=== PATIENT | male | born 1965 | race Caucasian/White ===

== ENCOUNTER 2024-04-01 01:32 | Inpatient (IN) | payer OTHER, SELFPAY ==
[2024-03-31 18:36] VITALS: BMI 39.1
[2024-03-31 18:43] VITALS: BP 124/93
[2024-03-31] MEDS: DILAUDID 0.5 MG IV (21:26)
[2024-03-31] MEDS: ZOFRAN 4 MG IV (21:26)
[2024-03-31] MEDS: NSS 1000 IV (21:26)
[2024-03-31 21:29] VITALS: BP 122/86
[2024-03-31 21:37] LABS: % Basophils 0.2 % (0-2); % Eosinophils 0.1 % (0-6); % Immature Granulocytes 0.3 % (0-0.5); % Lymphocytes 3.2 % (20.5-51.1); % Monocytes 3.9 % (1.7-9.3); % Neutrophils 92.3 % (42.2-75.2); Absolute Immature Granulocytes 0.1 10^3/uL (0-0.05); Absolute Lymphocytes 0.6 10^3/uL (1.2-3.4); Absolute Monocytes 0.8 10^3/uL (0.1-0.6); Absolute Neutrophils 18.4 10^3/uL (1.4-6.5); Hemoglobin 18.1 g/dL (13.0-18.0); Mean Corp Hgb Conc. 36.2 g/dL (33.0-37.0); Mean Corpuscular Hgb 30.7 pg (27.0-31.0); Mean Corpuscular Volume 84.7 fL (80.0-94.0); Mean Platelet Volume 8.4 fL (7.4-10.4); Nucleated Red Blood Cells % 0 % (-); Platelet Count 376 10^3/uL (130-400)
[2024-03-31 21:47] LABS: ALT (SGPT) 31 U/L (0-50); AST (SGOT) 31 U/L (17-59); Albumin 5.6 g/dl (3.5-5.0); Alkaline Phosphatase 82 U/L (38-126); Blood Urea Nitrogen 18 mg/dl (9-20); Calcium 11.3 mg/dl (8.4-10.2); Carbon Dioxide 28 mmol/L (22-30); Chloride 97 mmol/L (98-107); Estimated Creatinine Clearance 79 ml/min; Glucose 130 mg/dl (70-99); Lipase 74 U/L (23-300); Potassium 4.7 mmol/L (3.5-5.1); Sodium 139 mmol/L (135-145); Total Protein 8.9 g/dl (6.3-8.2); eGFR > 60.00
[2024-03-31 21:52] LABS: APTT 30.1 Sec (23.4-35.0)
[2024-03-31 22:00] VITALS: BP 111/78
[2024-03-31 22:20] VITALS: BP 111/78
[2024-03-31 23:00] VITALS: BP 105/61
--- NOTE | 2024-03-31 23:16 | ED.GENMED ---
History of Present Illness
General
Chief Complaint: Abdominal Pain
Source: patient and family
Time Seen by Provider: 03/31/24 19:57
Travel History
Have you had any contact with someone who has COVID-19?: No
Do you have any symptoms of coronavirus? Fever > 100 degrees, chills, cough, shortness of breath, sore throat, loss of taste or smell, muscle aches, or headache?: No
History of Present Illness
History of Present Illness:
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
He has had small bowel obstructions in the past due to adhesions. He began with pain this morning and did have some bowel movement but since this morning has not passed any gas from below or had a bowel movement. The patient feels the same he felt
when he had a prior bowel obstruction. No fevers. No melena. No hematochezia. No urinary symptoms
Past History
Past History
ED Past Medical History: Other (Treacher Barriga syndrome, bowel obstruction, tracheoesophageal)
ED Past Surgical History: Other (Tracheal esophageal fistula)
Patient has exhibited threatening behavior?: No
Social History
Tobacco: Non-smoker
Living: with family
Phy Exam
Physical Exam
Physical Exam:
CONSTITUTIONAL Patient alert and oriented to person, place and time. Well-appearing. Vital signs reviewed.
HEAD atraumatic, normocephalic.
EYES eyelids normal to inspection, Pupils equally round and reactive to light, Extraocular muscles intact, Conjunctiva normal, Sclera normal.
NECK normal range of motion, Trachea midline, no jugular venous distention.
RESPIRATORY CHEST No respiratory distress noted, Chest expansion equal, Bilateral breath sounds clear.
CARDIOVASCULAR regular rate and rhythm, Heart sounds normal.
ABDOMEN mild distention, moderate midline tenderness, no bowel sounds heard.
BACK normal inspection, no obvious deformities
UPPER EXTREMITY range of motion normal, Motor strength normal, no cyanosis, no edema.
LOWER EXTREMITY range of motion normal, Motor strength normal, no cyanosis, no edema.
NEURO Speech normal, No focal motor deficits, Leti coma scale 15, Memory normal, Cranial Nerves intact to screening exam.
SKIN skin warm, dry, and normal in color.
Course
Orders/Labs/Results
Orders:
Orders
03/31/24 20:18
Urinalysis Reflex To Culture Urgent
03/31/24 20:19
CT Abd/Pel (IV only)-DH only Urgent
Comment:
Reason For Exam: mid abd pain, intractable vomiting
03/31/24 20:26
0.9% Sodium Chloride 1000 ml [Nss] 1,000 ml IV BOLUS
HYDROmorphone [Dilaudid] 0.5 mg IV NOW STA
Ondansetron Injectable [Zofran] 4 mg IV NOW STA
03/31/24 21:31
Complete Blood Count/With Diff Urgent
Comprehensive Metabolic Panel Urgent
Lipase Urgent
PTT Urgent
Comment: Obtain baseline before beginning heparin infusion if not already collected
Abnormal Lab Results
03/31/24
21:31
WBC 20.0 H 10^3/uL
(4.8-10.8)
Hgb 18.1 H g/dL
(13.0-18.0)
Abs Immat Gran (auto) 0.1 H 10^3/uL
(0-0.05)
Absolute Neuts (auto) 18.4 H 10^3/uL
(1.4-6.5)
Absolute Lymphs (auto) 0.6 L 10^3/uL
(1.2-3.4)
Absolute Monos (auto) 0.8 H 10^3/uL
(0.1-0.6)
Neutrophils % 92.3 H %
(42.2-75.2)
Lymphocytes % 3.2 L %
(20.5-51.1)
Chloride 97 L mmol/L
(98-107)
Glucose 130 H mg/dl
(70-99)
Calcium 11.3 H mg/dl
(8.4-10.2)
Total Protein 8.9 H g/dl
(6.3-8.2)
Albumin 5.6 H g/dl
(3.5-5.0)
03/31/24 21:31
03/31/24 21:31
Vital Signs
Initial and Last Documented VS:
Initial Vital Signs
Temp Pulse Resp BP Pulse Ox
98.9 F 70 20 124/93 97
03/31/24 18:43 03/31/24 18:43 03/31/24 18:43 03/31/24 18:43 03/31/24 18:43
Last Documented Vital Signs
Temp Pulse Resp BP Pulse Ox
98.9 F 71 20 111/78 94
03/31/24 18:43 03/31/24 22:20 03/31/24 22:20 03/31/24 22:20 03/31/24 22:20
MDM/Problems Addressed
MDM/Problems Addressed:
Small bowel obstruction
*Radiology
Radiology exam reviewed: preliminary read by ED provider (Dilated loops noted) and radiology read reviewed
*Pulse Oximetry
Patient hypoxic: no
*Critical Care Note
Total Time (30-74mins, 75-104mins- exclusive of procedures): Not Applicable
Data Reviewed
Review of Other/Old Records Reveals: Other (Prior surgical consultation reviewed from June 2023)
Source: patient and family
Further Testing Considered But Not Given:
Considered NG tube but due to craniofacial abnormalities, NG tube is contraindicated in this patient. This was also read on the prior surgical consultation
Patient Management
Discussion with other providers: Hospitalist and Radiologist
Escalation/DeEscalation of care consider admission/obs:
59-year-old male with small bowel obstruction. Stable. No vomiting at this time. Unable to place NG tube due to history of craniofacial abnormalities. Prior obstructions have been resolved with conservative management
ED Attending Note
-
Portions of this chart may have been created with voice recognition software.� Occasional wrong word or��sound alike� substitutions may have occurred due to the inherent limitations of voice recognition software.
Discharge Plan
Departure
Patient Disposition: Admit
Date of Disposition: 03/31/24
Time of Disposition: 23:16
Admit to: Med/Surg
Presentation/result/management discussed w/ accepting MD/DO: Hospitalist
Discharge Problem:
SBO (small bowel obstruction), Treacher Barriga syndrome
Prescriptions:
No Action
lisinopril 5 MG tablet
5 mg PO DAILY
docosahexaenoic acid-epa 1 CAP capsule
1 cap PO DAILY
therapeutic multivitamin Tablet
1 tab PO DAILY
Referrals:
Wojciech Roman MD [Family Provider] -
Interventions
Interventions:
*Risk Screen - Suicide Last Done: 03/31/24 18:43
*General Assessment Last Done: 03/31/24 18:43
*Neglect/Abuse Screening Last Done: 03/31/24 18:43
ED- Fall Risk Assessment Last Done: 03/31/24 21:58
CE-Oyntoh-Nmdmiiidih Assessment Last Done: 03/31/24 21:58
Discharge Date and Time
Print Language: HUNGARIAN
[2024-04-01] VITALS: BP 109/70
[2024-04-01 00:42] LABS: Urine Albumin Trace (Neg - Trace); Urine Bilirubin 1+ (Negative); Urine Character Clear (Clear); Urine Color Yellow; Urine Glucose Negative (Negative); Urine Ketone Negative (Negative); Urine Leukocyte Negative (Negative); Urine Nitrite Negative (Negative); Urine Occult Blood 2+ (Negative); Urine Specific Gravity 1.015 (<1.030); Urine Urobilinogen Negative (Neg - 1+)
--- NOTE | 2024-04-01 00:54 | HPS.HSE ---
Family Physician
-
Family Physician: Wojciech Roman
Chief Complaint
-
Abd Pain, N/V
History of Present Illness
Patient is a 59y M with PMH significant for Treacher-Barriga syndrome and HTN who presents to ED complaining of abdominal pain and N/V. Patient states that he felt well yesterday. This AM he had breakfast with no issues. Later in the morning
he ate a banana and immediately developed mid-abdominal pain. His pain progressed throughout the day. He developed nausea and had 6-7 episodes of non-bloody / bilious emesis. Patient reports history of similar episodes in the past. He presented
to the ED for further evaluation.
Patient notes that he was last hospitalized for these symptoms in June 2023. He has never required surgery for an episode of SBO - though the option has been discussed.
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
Medical History
Past Medical History
Past Medical History: Reports Other
Additional Past Medical History:
Treacher-Barriga Syndrome
Hypertension
Recurrent SBO
Past Surgical History: Reports Other
Additional Past Surgical History:
Tracheoesophageal Fistula Repair
Facial Reconstructive Surgery
Gastrostomy Tube
Social History
Tobacco: Non-smoker
Alcohol: None
Drug: None
Family History
Family History: Not pertinent
Allergies / Home Medications
Allergies reflects when Allergies were last updated in [facility].
Home Medications with original date entered in [facility]
Allergy/Medication List:
Allergies
Allergy/AdvReac Type Severity Reaction Status Date / Time
environmental Allergy Nasal Uncoded 03/31/24 18:46
Congestion
Home Medications
docosahexaenoic acid (dha)-epa 120 mg-180 mg capsule 1 cap PO DAILY Supplement 09/25/17
lisinopril 5 mg tablet 5 mg PO DAILY Blood Pressure 09/25/17
therapeutic multivitamin 1 tab PO DAILY Supplement 06/21/23
calcium carbonate 500 mg PO DAILY 03/31/24
Review of Systems
-
History Source: Patient
A 12 point ROS was completed and negative except as noted: Yes
Constitutional: Denies Fever or Chills
Respiratory: Denies Cough or Trouble Breathing
Cardiac: Denies Chest Pain or Palpitations
Abdomen/GI: Reports Abdominal Pain, Nausea and Vomiting; Denies Diarrhea or Constipated
: Denies Dysuria, Frequency or Flank Pain
Neurological: Denies Dizzy or Headache
Psych: Denies Depression or Anxiety
Physical Exam
Vital Signs
Vital Signs
Temp Pulse Resp BP Pulse Ox
98.9 F 71 20 109/70 93
03/31/24 18:43 03/31/24 22:20 03/31/24 22:20 04/01/24 00:00 03/31/24 23:30
Physical Exam
General: Other (59y M in no acute distress.)
HEENT: Moist mucous membranes and PERRLA
Respiratory: Clear; No Wheezes, Rales or Rhonchi
Cardiac: S1/S2 and Regular Rhythm; No Murmur
GI: Soft, Normal Bowel Sounds and Other (Abdomen softly distended, mildly tender at umbilicus. Bowel sounds are evident.)
Musculoskeletal: No Clubbing, No Cyanosis and No Edema
Neuro: AO x 3
Laboratory Results
-
03/31/24 21:31
03/31/24 21:31
Laboratory Results
APTT 30.1 Sec (23.4-35.0) 03/31/24 21:31
Total Bilirubin 1.0 mg/dl (0.2-1.3) 03/31/24 21:31
AST 31 U/L (17-59) 03/31/24 21:31
ALT 31 U/L (0-50) 03/31/24 21:31
Alkaline Phosphatase 82 U/L (38-126) 03/31/24 21:31
Lipase 74 U/L (23-300) 03/31/24 21:31
Impression/Plan
-
A/P: Patient is a 59y M with PMH significant for Treacher-Barriga syndrome and recurrent SBO who presents to ED complaining of abdominal pain and N/V.
SBO
- Observe overnight for further evaluation and treatment.
- NPO, IVFs, antiemetics and pain control.
- Surgery evaluation.
- Follow for flatus / BM, improvement in symptoms.
- Patient notes that he is unable to have NG placed.
Benign Hypertension
- Stable. Hold PO medications for now.
- Resume lisinopril once tolerating POs.
DVT Prophylaxis: SCDs
Code Status: Full
[2024-04-01 02:27] LABS: Urine Amorphous Seen
[2024-04-01 02:28] LABS: Urine Bacteria Few (Negative); Urine White Cell 0-2 /HPF (0-5)
[2024-04-01 03:13] VITALS: BMI 39.3
[2024-04-01 03:14] VITALS: BP 137/82
[2024-04-01] MEDS: NSS 1000 IV ×3 (03:26→23:08)
[2024-04-01 07:00] VITALS: BP 114/69
[2024-04-01 08:04] LABS: Hematocrit 43.5 % (39.0-52.0); Mean Corp Hgb Conc. 34.5 g/dL (33.0-37.0); Mean Corpuscular Volume 89.9 fL (80.0-94.0); Platelet Count 285 10^3/uL (130-400); Red Blood Cell Count 4.84 10^6/uL (4.70-6.10); Red Cell Dist. Width 13.2 % (11.5-14.5); White Blood Cell Count 12.7 10^3/uL (4.8-10.8)
[2024-04-01 08:35] LABS: Blood Urea Nitrogen 16 mg/dl (9-20); Calcium 9.5 mg/dl (8.4-10.2); Carbon Dioxide 21 mmol/L (22-30); Chloride 106 mmol/L (98-107); Estimated Creatinine Clearance 90 ml/min; Glucose 92 mg/dl (70-99); Potassium 4.3 mmol/L (3.5-5.1); Sodium 140 mmol/L (135-145); eGFR > 60.00
[2024-04-01 08:55] LABS: TSH Reflex To Free T4 2.63 uIU/ml (0.47-4.68)
--- NOTE | 2024-04-01 09:13 | W.PN.HOSP.TC ---
Today's Communication/Plan
-
Continue supportive care
Surgery consult
Assessment / Plan
Assessment / Plan
Gen-AAOx3, NAD
HEENT-NC, AT, anicteric, clear oral mm
Neck-supple
CV-reg, no M, +S1/S2
Lungs-clear B/L
Abd-soft, NT, ND
Ext-no edema
Musculoskeletal-no cyanosis, clubbing
Skin-warm and dry
Neuro-grossly non-focal
Psych-calm, cooperative
Recurrent small bowel obstruction -suspect triggered by dietary indiscretion. Apparently went out to celebrate his birthday recently and ate popcorn and had a large meal. Subsequently had onset of symptoms.
Currently NPO. Continue IV fluids. Await surgery input. Passing gas. No bowel movement since yesterday.
Likely also has adhesions from prior procedures as a child including a G-tube as an infant.
Treacher-Barriga syndrome
Essential hypertension -stable.
Obesity due to excess calories
Full code
Anticipated Discharge: Within 24 hours
Subjective/Interval History
-
Date of Service: April 01, 2024
Patient seen and examined. Feeling better. No complaints.
Objective Data
-
Labs:
Laboratory Results
03/31/24 04/01/24
21:31 07:18
WBC 20.0 H 12.7 H
Hgb 18.1 H 15.0
Hct 50.0 43.5
Plt Count 376 285 D
APTT 30.1
Sodium 139 140
Potassium 4.7 4.3
Chloride 97 L 106
Carbon Dioxide 28 21 L
BUN 18 16
Creatinine 0.8 0.7
Glucose 130 H 92
Calcium 11.3 H 9.5 D
Total Bilirubin 1.0
AST 31
ALT 31
Alkaline Phosphatase 82
Vital Signs:
Vital Signs
Temp Pulse Resp BP Pulse Ox
99.3 F 83 18 114/69 96
04/01/24 07:00 04/01/24 07:00 04/01/24 07:00 04/01/24 07:00 04/01/24 07:00
Review of Systems
-
History Source: Patient
All other systems: Reviewed and negative
[2024-04-01] MEDS: PROTONIX IV 40 MG IV (09:35)
[2024-04-01] MEDS: NSS (PRESERVATIVE FREE) 10 ML IV (09:35)
--- NOTE | 2024-04-01 11:28 | CM ---
financial center manager reviewed patient's chart and met with patient and patient lives with his mother in a 2 story home, patient is independent with adl's and ambulation, no dme, patient drives, patient has a prescription plan and uses [facility].
PCP: Dr. Roman
Plan; Home when stable, no needs.
--- NOTE | 2024-04-01 11:55 | CON.GS ---
Consultation
-
Performing Provider: susie
Reason for Consultation: Small bowel obstruction
Medical History
-
Chief Complaint: Abdominal pain, nausea vomiting
History of Present Illness:
Patient is a 59-year-old male known to our surgical service after previous hospitalizations for small bowel obstructions.
Last hospitalization 06/2023 for SBO which resolved with conservative management. He had another episode a year prior to this and then it had been 10 years since his previous one. Surgical history notable for Treacher-Barriga syndrome, history of
tracheoesophageal fistula child having undergone subsequent correction and gastrostomy tube placement. He has also had multiple craniofacial surgeries.
Patient states that he has been feeling well since hospitalization in June without recurrent obstructive symptoms. He had a large meal to celebrate his birthday the other day and since began to take note of abdominal distention and discomfort.
It increased in severity yesterday with nausea vomiting prompting emergency department evaluation.
This a.m. he is feeling better. Currently denies nausea. Denies abdominal pain. He has not had a bowel movement since his symptoms started.
Past Medical History
Past Medical History: Other (Treacher-Barriga syndrome, hypertension, recurrent SBO)
Past Surgical History: Other (History of T-E fistula repair as a child, gastrostomy tube was trialed, facial reconstructive surgery)
Social History
Tobacco: Non-Smoker
Alcohol: None
Living: With Family
Family History
Family History: Reviewed & Not Pertinent
Allergies / Home Medications
Allergy/AdvReac Type Severity Reaction Status Date / Time
environmental Allergy Nasal Uncoded 03/31/24 18:46
Congestion
�Medication �Instructions �Recorded �Confirmed �Type
docosahexaenoic acid (dha)-epa 120 1 cap PO DAILY Supplement 09/25/17 03/31/24 History
mg-180 mg capsule
lisinopril 5 mg tablet 5 mg PO DAILY Blood Pressure 09/25/17 03/31/24 History
therapeutic multivitamin 1 tab PO DAILY Supplement 06/21/23 03/31/24 History
calcium carbonate 500 mg PO DAILY supplement 03/31/24 03/31/24 History
Review of Systems
-
History Source: Patient
All other systems: Negative unless noted
A 10 point review of systems was completed, and was negative except as per HPI.
Physical Exam
Vital Signs
Temp Pulse Resp BP Pulse Ox
99.3 F 83 18 114/69 96
04/01/24 07:00 04/01/24 07:00 04/01/24 07:00 04/01/24 07:00 04/01/24 07:00
03/31/24 04/01/24 04/02/24
06:59 06:59 06:59
Actual Weight 79.379 kg
Body Mass Index (BMI) 39.3
Lab Results
04/01/24 07:18
04/01/24 07:18
WBC 12.7 10^3/uL (4.8-10.8) H 04/01/24 07:18
Hgb 15.0 g/dL (13.0-18.0) 04/01/24 07:18
Hct 43.5 % (39.0-52.0) 04/01/24 07:18
Plt Count 285 10^3/uL (130-400) D 04/01/24 07:18
Abs Immat Gran (auto) 0.1 10^3/uL (0-0.05) H 03/31/24 21:31
Neutrophils % 92.3 % (42.2-75.2) H 03/31/24 21:31
Physical Exam
General: Well Developed, Well Nourished, No Apparent Distress and Comfortable
Respiratory: Non Labored Respirations
Cardiac: Regular Rhythm
GI: Soft, Non Tender, Distended (Slightly distended with some tympany) and Obese
Skin: Warm
Neuro: AO x 3
Psych: Calm
Data Reviewed
-
CT Scan: Image Personally Visualized and interpreted
Labs: Labs Reviewed by me
Assessment / Plan
-
Assessment: 59-year-old male presenting with recurrent small bowel obstruction in setting of recent dietary indiscretion although transition point appears to be well demarcated on CT imaging and very similar to prior scan in June 2023.
Clinically improving. CT imaging without evidence of immediate bowel compromise or threat such as closed-loop obstruction, pneumatosis, abscess, free fluid, portal venous gas.
Plan: Given clinical stability continue with current medical management including bowel rest, IV fluid hydration and supportive care
follow-up abdominal x-ray imaging tomorrow a.m.
At this point plan is for nonoperative management however future consideration may be given to considering surgical intervention given previous study showing obstruction occurring at similar location. This can always be considered as an outpatient
assuming resolution of his acute obstructive symptoms.
[2024-04-01 15:00] VITALS: BP 101/60
[2024-04-01] MEDS: ZOFRAN 4 MG IV (19:56)
[2024-04-01 23:43] VITALS: BP 141/80
[2024-04-02 07:41] VITALS: BP 136/77
[2024-04-02] MEDS: PROTONIX IV 40 MG IV (08:36)
[2024-04-02] MEDS: NSS (PRESERVATIVE FREE) 10 ML IV (08:36)
--- NOTE | 2024-04-02 10:47 | W.PN.GS2 ---
Addendum entered and electronically signed by Jose Delgado MD 04/02/24 12:22:
Patient seen and examined with nurse practitioner this a.m. and continued follow-up discussions with his family via phone call just recently.
Patient offers no specific concerns or questions.
States he has passed occasional flatus
No nausea this a.m. No vomiting.
AFVSS
ABD: Soft, obese, difficult to assess distention but may be some tympany on percussion. Minimal tenderness.
Assessment/plan: 59-year-old male with recurrent small bowel obstruction, likely secondary to adhesions
Lengthy discussions with patient and particularly his sister who is very involved with his care. Offered either surgical intervention given probable persistence of at least suspected moderate to high-grade PSBO and very similar CT imaging to June
2022 with well-defined transition point. Alternatively repeat CT imaging with oral contrast to better assess degree of improvement or persistence of his obstruction. After discussions regarding risks and benefits of various approaches his family
is preference is for repeat imaging prior to considering surgery. Patient comfortable with his family members decisions/guidance for medical decision making.
Follow-up CT imaging ordered
Original Note:
Today's Communication / Plan
-
Tentative OR later today
Assessment / Plan
-
Assessment: 59-year-old male presenting with recurrent small bowel obstruction in setting of recent dietary indiscretion although transition point appears to be well demarcated on CT imaging and very similar to prior scan in June 2023.
Follow up XR reviewed, lack of oral contrast limits findings. Discussed surgical intervention given previous study showing obstruction occurring at similar location. Family wishes to discuss and decide by later this am.
AFVSS
Leukocytosis improved
Plan:
Continue NPO
Plan OR later today for dx lap for DEREK pending patient/family decision
Subjective Data
-
Date of Service: April 02, 2024
Patient seen and examined at bedside with Dr. Delgado. Sister called on speaker phone at patient's request. He has passed a little flatus. Nausea last night but not today. Abdominal discomfort persists to center left of abdomen but not severe
Objective Data
-
Intake and Output
04/01/24 04/02/241824
06:59 06:59 06:59
Intake Total 2220 / 2220
Balance 2220 / 2220
Intake:
Oral fluids 720 / 720
IV fluids (Total) 1500 / 1500
IV piggybacks 0 / 0
Other:
Number of approximated MODERATE 2
amounts of urine
Vital Signs
Temp Pulse Resp BP Pulse Ox
98.3 F 62 18 136/77 97
04/02/24 07:41 04/02/24 07:41 04/02/24 07:41 04/02/24 07:41 04/02/24 07:41
Lab Results
04/01/24 07:18
04/01/24 07:18
Calcium 9.5 mg/dl (8.4-10.2) D 04/01/24 07:18
Total Bilirubin 1.0 mg/dl (0.2-1.3) 03/31/24 21:31
AST 31 U/L (17-59) 03/31/24 21:31
ALT 31 U/L (0-50) 03/31/24 21:31
Alkaline Phosphatase 82 U/L (38-126) 03/31/24 21:31
Total Protein 8.9 g/dl (6.3-8.2) H 03/31/24 21:31
Albumin 5.6 g/dl (3.5-5.0) H 03/31/24 21:31
Physical Exam
-
NAD AAOx3
ABD: soft, obese, mild distention, mild focal tenderness left of midline
--- NOTE | 2024-04-02 11:26 | CM ---
Chart reviewed and patient for possible OR later today.
Plan; Home when stable.
--- NOTE | 2024-04-02 11:40 | W.PN.HOSP.TC ---
Today's Communication/Plan
-
Await CT scan
Assessment / Plan
Assessment / Plan
Gen-AAOx3, NAD
HEENT-NC, AT, anicteric, clear oral mm
Neck-supple
CV-reg, no M, +S1/S2
Lungs-clear B/L
Abd-soft, NT, ND
Ext-no edema
Musculoskeletal-no cyanosis, clubbing
Skin-warm and dry
Neuro-grossly non-focal
Psych-calm, cooperative
Recurrent small bowel obstruction -suspect triggered by dietary indiscretion. Apparently went out to celebrate his birthday recently and ate popcorn and had a large meal. Subsequently had onset of symptoms.
Currently NPO. Continue IV fluids.
Discussed case with general surgery, Dr. Delgado. Plan for CT scan today. Family wants to treat nonoperatively assuming his SBO resolves. Family understands that there is a good chance that it will recur in the future.
Treacher-Barriga syndrome
Essential hypertension -stable.
Obesity due to excess calories
Full code
Anticipated Discharge: Within 24 hours
Subjective/Interval History
-
Date of Service: April 02, 2024
Patient seen/examined. No complaints.
Objective Data
-
Vital Signs:
Vital Signs
Temp Pulse Resp BP Pulse Ox
98.3 F 62 18 136/77 97
04/02/24 07:41 04/02/24 07:41 04/02/24 07:41 04/02/24 07:41 04/02/24 07:41
I&O
04/01/24 04/02/24 04/03/24
06:59 06:59 06:59
Intake Total 2219
Balance 2219
Review of Systems
-
History Source: Patient
All other systems: Reviewed and negative
[2024-04-02] MEDS: OMNIPAQUE 50 ML PO (12:13)
[2024-04-02] MEDS: NSS 1000 IV (15:16)
[2024-04-02 16:00] VITALS: BP 130/76
--- NOTE | 2024-04-02 16:07 | W.PN.SURGUPD ---
Surgical Update
Surgical Update
CT imaging reviewed. contrast administered passes throughout SB and into colon ruling out high grade/persistent SBO.
updated pts sister via phone call.
plan will be to start diet advancement and discharge if tolerated with outpatient surgical followup
will follow
[2024-04-02 23:00] VITALS: BP 138/75
[2024-04-03 07:00] VITALS: BP 139/92
[2024-04-03] MEDS: NSS (PRESERVATIVE FREE) 10 ML IV (08:13)
[2024-04-03] MEDS: PROTONIX IV 40 MG IV (08:13)
--- NOTE | 2024-04-03 10:51 | W.PN.HOSP.TC ---
Today's Communication/Plan
-
Advance diet as tolerated
Possible discharge
Assessment / Plan
Assessment / Plan
Gen-AAOx3, NAD
HEENT-NC, AT, anicteric, clear oral mm
Neck-supple
CV-reg, no M, +S1/S2
Lungs-clear B/L
Abd-soft, NT, ND
Ext-no edema
Musculoskeletal-no cyanosis, clubbing
Skin-warm and dry
Neuro-grossly non-focal
Psych-calm, cooperative
Recurrent small bowel obstruction -suspect triggered by dietary indiscretion. Apparently went out to celebrate his birthday recently and ate popcorn and had a large meal. Subsequently had onset of symptoms.
Discussed case with general surgery, Dr. Delgado. Family wants to treat nonoperatively assuming his SBO resolves. Family understands that there is a good chance that it will recur in the future.
Repeat CT abdomen done yesterday shows resolving small bowel obstruction and enteritis.
Tolerated full liquids, advance to low residue for lunch. Possible discharge if he tolerates. Discussed with Dr. Delgado. Outpatient follow-up.
Treacher-Barriga syndrome
Essential hypertension -stable.
Obesity due to excess calories
Full code
Anticipated Discharge: Today
Subjective/Interval History
-
Date of Service: April 03, 2024
Patient seen and examined. No complaints.
Objective Data
-
Vital Signs:
Vital Signs
Temp Pulse Resp BP Pulse Ox
98.3 F 74 16 139/92 97
04/03/24 07:00 04/03/24 07:00 04/03/24 07:00 04/03/24 07:00 04/03/24 07:00
I&O
04/02/24 04/03/24 04/04/24
06:59 06:59 06:59
Intake Total 2220 / 2220 1850 / 1850 480 / 480
Balance 2219 480 / 480
Review of Systems
-
History Source: Patient
All other systems: Reviewed and negative
--- NOTE | 2024-04-03 11:36 | W.PN.GS2 ---
Addendum entered and electronically signed by Jose Delgado MD 04/03/24 13:48:
Patient seen and examined with surgical nurse practitioner earlier this a.m.
Yo feels well. Denies abdominal pain, denies nausea, denies vomiting,
Passing flatus but no bowel movement yet
AFVSS
ABD: Soft, obese, nondistended, no tympany on percussion and nontender.
A/P: 59-year-old male with resolving recurrent small bowel obstruction -radiographically resolved and clinically improved
Low residue diet as tolerated
Okay to DC home
Discussed with patient and his sister Cecelia yesterday subsequent outpatient surgical follow-up for ongoing discussions regarding management of his history of multiple recurrent partial small bowel obstructions
Original Note:
Today's Communication / Plan
-
Advance diet
Dispo planning
Assessment / Plan
-
Assessment: 59-year-old male presenting with recurrent small bowel obstruction in setting of recent dietary indiscretion although transition point appears to be well demarcated on CT imaging and very similar to prior scan in June 2023.
Follow up XR reviewed, lack of oral contrast limits findings.
CT with PO contrast yesterday with passage of contrast into colon, tolerating diet
AFVSS
Leukocytosis improved
Plan:
Continue diet advancement to LRD
Ok to d/c from surgical standpoint once tolerating diet
Will plan outpatient follow up to discuss possible dx lap with megan on elective basis, family agreeable with this plan
Subjective Data
-
Date of Service: April 03, 2024
Patient seen and examined at bedside with Dr. Delgado. Passing flatus and tolerating full liquids. Denies pain.
Objective Data
-
Intake and Output
04/02/24 04/03/24 04/04/24
06:59 06:59 06:59
Intake Total 2220 / 2220 1850 / 1850 480 / 480
Balance 2220 / 2220 185 / 1850 480 / 480
Intake:
Oral fluids 720 / 720 600 / 600 480 / 480
IV fluids (Total) 1500 / 1500 1250 / 1250
IV piggybacks 0 / 0
Other:
Number of approximated MODERATE 2 2 2
amounts of urine
Number of approximated LARGE 1
amounts of urine
Vital Signs
Temp Pulse Resp BP Pulse Ox
98.3 F 74 16 139/92 97
04/03/24 07:00 04/03/24 07:00 04/03/24 07:00 04/03/24 07:00 04/03/24 07:00
Lab Results
04/01/24 07:18
04/01/24 07:18
Calcium 9.5 mg/dl (8.4-10.2) D 04/01/24 07:18
Total Bilirubin 1.0 mg/dl (0.2-1.3) 03/31/24 21:31
AST 31 U/L (17-59) 03/31/24 21:31
ALT 31 U/L (0-50) 03/31/24 21:31
Alkaline Phosphatase 82 U/L (38-126) 03/31/24 21:31
Total Protein 8.9 g/dl (6.3-8.2) H 03/31/24 21:31
Albumin 5.6 g/dl (3.5-5.0) H 03/31/24 21:31
Physical Exam
-
NAD AAOx3
ABD: soft, obese, NT, ND
--- NOTE | 2024-04-03 13:29 | W.DS.TRANS ---
DC Summary - Regional Business Manager
-
Discharge Instructions:
Discharge Diagnosis/Procedures Small bowel obstruction
Diet Low Fiber
Activity As tolerated
Driving Restrictions No driving
Bathing Restrictions None
Instructions:
Stand-Alone Forms:
Changes to Home Medications: No
Discharge Medications:
DC Medications w/original date entered in [facility]
docosahexaenoic acid (dha)-epa 120 mg-180 mg capsule 1 cap PO DAILY Supplement 09/25/17
lisinopril 5 mg tablet 5 mg PO DAILY Blood Pressure 09/25/17
therapeutic multivitamin 1 tab PO DAILY Supplement 06/21/23
calcium carbonate 500 mg PO DAILY supplement 03/31/24
Home Medication Changes
Pending Results: No
--- NOTE | 2024-04-03 14:20 | CM ---
Patient seen bedside.
Patient was up ambulating in the halls.
IMM completed.
Plan: d/c home, no needs.
== END 2024-04-03 14:38 | disposition home or self-care (01) | DRG 390 ==
LOC: 4 WEST ACU 01:32
PROVIDERS: ADMITTING PHYSICIAN Hospitalist; ATTENDING PHYSICIAN Hospitalist; CONSULT PHYSICIAN Surgery; EMERGENCY PHYSICIAN Emergency Medicine; FAMILY PHYSICIAN Family Medicine
DX: K56.50 Intestinal adhesions [bands], unspecified as to partial versus complete obstruction (principal); Q75.4 Mandibulofacial dysostosis; I10 Essential (primary) hypertension; E66.09 Other obesity due to excess calories; Z68.39 Body mass index [BMI] 39.0-39.9, adult
CPT/HCPCS: 74018; 74177; 80048; 80053; 81003; 81015; 83690; 84443; 85025; 85027; 85730; 96361; 96374; 96375; 99285; Q9967

== ENCOUNTER 2025-03-30 02:42 | Inpatient (IN) | payer OTHER, SELFPAY ==
[2025-03-29 19:46] VITALS: BP 168/104
[2025-03-29 20:05] LABS: % Basophils 0.2 % (0-2); % Eosinophils 0.2 % (0-6); % Immature Granulocytes 0.5 % (0-0.5); % Lymphocytes 7.5 % (20.5-51.1); % Monocytes 4.9 % (1.7-9.3); % Neutrophils 86.7 % (42.2-75.2); Absolute Immature Granulocytes 0.1 10^3/uL (0-0.05); Absolute Lymphocytes 1.3 10^3/uL (1.2-3.4); Absolute Monocytes 0.9 10^3/uL (0.1-0.6); Absolute Neutrophils 15.2 10^3/uL (1.4-6.5); Hematocrit 46.5 % (39.0-52.0); Hemoglobin 16.1 g/dL (13.0-18.0); Mean Corp Hgb Conc. 34.6 g/dL (33.0-37.0); Mean Corpuscular Hgb 30.5 pg (27.0-31.0); Mean Corpuscular Volume 88.1 fL (80.0-94.0); Mean Platelet Volume 8.7 fL (7.4-10.4); Nucleated Red Blood Cells % 0 % (-); Platelet Count 333 10^3/uL (130-400); Red Blood Cell Count 5.28 10^6/uL (4.70-6.10); Red Cell Dist. Width 13.1 % (11.5-14.5); White Blood Cell Count 17.5 10^3/uL (4.8-10.8)
[2025-03-29 20:20] LABS: ALT (SGPT) 41 U/L (0-50); AST (SGOT) 29 U/L (17-59); Albumin 5.1 g/dl (3.5-5.0); Alkaline Phosphatase 84 U/L (38-126); Blood Urea Nitrogen 16 mg/dl (9-20); Calcium 10.2 mg/dl (8.4-10.2); Carbon Dioxide 24 mmol/L (22-30); Chloride 108 mmol/L (98-107); Glucose 147 mg/dl (70-99); Potassium 4.5 mmol/L (3.5-5.1); Sodium 141 mmol/L (135-145); Total Protein 7.8 g/dl (6.3-8.2); eGFR > 60.00
[2025-03-29 20:21] LABS: Lipase 110 U/L (23-300)
[2025-03-29 22:50] VITALS: BP 127/91
--- NOTE | 2025-03-29 23:03 | ED.GENMED ---
History of Present Illness
General
Chief Complaint: Abdominal Pain
Source: patient
Exam Limitations: none
Time Seen by Provider: 03/29/25 23:01
Nursing documentation reviewed up to this point in time: agreed with
History of Present Illness
History of Present Illness:
59-year-old male with a past medical history of treacher gonzalez syndrome, tracheoesophageal fistula at , mitral regurgitation, hypertension, who presents emergency department today with concerns of abdominal pain and vomiting. Patient reports
that this started yesterday with diffuse abdominal pain and then he started to get persistent vomiting. He reports it feels similar 20 he has had a small bowel obstruction in the past. Family reports that he has a stricture in the small bowel that
periodically causes obstruction and they did discuss possible repair however they prefer to repeat imaging at a later time prior to considering surgery. Patient denies radiation of pain into the chest. Patient denies any sick contacts. Patient
denies any fevers or chills. Patient denies any shortness of breath. Patient denies any blood in his vomit or rectal bleeding. Patient states he did have 1 episode of dark stool.
Past History
Past History
ED Past Medical History: Other (Treacher Gonzalez syndrome, bowel obstruction, tracheoesophageal)
ED Past Surgical History: Other (Tracheal esophageal fistula)
Patient has exhibited threatening behavior?: No
Social History
Tobacco: Non-smoker
Living: with family
Review of Systems
Review of Systems
All Other Systems: ROS reviewed and negative except as documented in HPI and ROS
Phy Exam
Physical Exam
Physical Exam:
General: Patient is well appearing and in no acute distress; non-toxic
Skin: Warm and dry, no rashes or lesions
Head: Normocephalic, atraumatic
Eyes: Sclera non-icteric. EOMs intact.
Cardiac: Tachycardia noted otherwise regular rhythm, no murmurs
Peripheral Vascular: No lower extremity swelling or edema
Pulm: Normal respiratory effort, no wheezes, rales, rhonchi
Abdomen: Diffuse abdominal tenderness with guarding noted, no palpable abdominal mass, no audible bowel sounds
Neuro: CN II-XII intact, no focal neurologic deficits.
Psychiatric: Appropriate mood and affect.
Course
Orders/Labs/Results
Orders:
Orders
03/29/25 19:55
Complete Blood Count/With Diff Urgent
Comprehensive Metabolic Panel Urgent
Lipase Urgent
03/29/25 23:16
0.9% Sodium Chloride 1000 ml [Nss] 1,000 ml IV BOLUS
HYDROmorphone [Dilaudid] 0.5 mg IV NOW STA
Ondansetron Injectable [Zofran] 4 mg IV NOW STA
03/29/25 23:17
CT Abd/pelvis W Iv Cont Urgent
Comment:
Reason For Exam: diffuse abdominal pain, intractable vomiting
Urinalysis Reflex To Culture Urgent
Date Specimen was Collected: 03/30/25
Time Specimen was Collected: 02:02
03/30/25 02:06
Urine Microscopic Reflex Cult Urgent
03/30/25 02:16
Admit/Transfer Patient As Directed
Co-Sign Provider:
Level of Care: Inpatient admission
Assign to:: Medical/Surgical
Physician / Group: Leilani
Diagnosis: SBO
Reason for Hospitalization: SBO
Expected length of stay greater than two midnights?: Yes
ELOS- Estimated Length of Stay in days: 2
I certify the patient meets the requirements for IP care: Yes
PRN Pain Medication Management As Directed
May give lesser potent ordered pain med per pt: Yes
preference::
Protocol:: Medication orders for pain may be administered in a
manner that supports deferring to patient preference
when the pt is:
- Requesting an ordered lesser potent pain medication.
Least to most potent pain medications are defined
as: acetaminophen < NSAID < tramadol < opioids
(morphine, oxycodone, hydromorphone).
- Requesting a lesser dose of the same medication IF
ORDERED.
- Requesting a less intrusive route of administration
if both routes are prescribed by the provider (PO <
IV).
03/30/25 02:17
Code Status As Directed
Resuscitation Status: Full Code
03/30/25 02:31
HYDROmorphone [Dilaudid] 0.5 mg .ROUTE .STK-MED ONE
Ketorolac [Toradol] 30 mg IV NOW STA
Ondansetron Injectable [Zofran] 4 mg .ROUTE .STK-MED ONE
03/30/25 02:36
Ondansetron Injectable [Zofran] 4 mg IV NOW STA
03/30/25 02:40
HYDROmorphone [Dilaudid] 0.5 mg IV NOW STA
03/30/25 03:31
Dextrose 5%/Lactringers 1000ML [D5lr] 1,000 ml IV 100 mls/hr
HYDROmorphone [Dilaudid] 0.5 mg IV Q4HPRN PRN
Ketorolac [Toradol] 10 mg IV Q6HPRN PRN
Ondansetron Injectable [Zofran] 4 mg IV Q6HPRN PRN
03/30/25 03:31
SURGICAL CONSULT Routine
Consulting Provider: Gavino Bueno
Was physician already notified: Yes
Reason for consult: SBO, treacher-gonzalez syndrome with recurrent sbo
Activity As Directed
Activity Level: With Assistance
Vital Signs As Directed
Frequency: Per unit guidelines
Pulse Ox/spot Check [RESP] Routine
Quantity: 1
DX Deep Vein Thrombosis Video Routine
03/30/25 Breakfast
NPO
Allow oral meds: No
Allow clear liquids: Sips of Clears
Basic Metabolic Panel IN AM
Complete Blood Count/No Diff IN AM
03/30/25 18:00
Enoxaparin Sodium [Lovenox] 40 mg SC QPM
Abnormal Lab Results
03/29/25 03/30/25
19:55 02:06
WBC 17.5 H 10^3/uL
(4.8-10.8)
Abs Immat Gran (auto) 0.1 H 10^3/uL
(0-0.05)
Absolute Neuts (auto) 15.2 H 10^3/uL
(1.4-6.5)
Absolute Monos (auto) 0.9 H 10^3/uL
(0.1-0.6)
Neutrophils % 86.7 H %
(42.2-75.2)
Lymphocytes % 7.5 L %
(20.5-51.1)
Chloride 108 H mmol/L
(98-107)
Glucose 147 H mg/dl
(70-99)
Albumin 5.1 H g/dl
(3.5-5.0)
Urine Ketones 1+ A
(Negative)
Ur Occult Blood Reflex 1+ A
(Negative)
Urine Albumin (Reflex) 1+ A
(Neg - Trace)
03/29/25 19:55
03/29/25 19:55
Vital Signs
Initial and Last Documented VS:
Initial Vital Signs
Temp Pulse Resp BP Pulse Ox
99 F 94 16 168/104 95
03/29/25 19:46 03/29/25 19:46 03/29/25 19:46 03/29/25 19:46 03/29/25 19:46
Last Documented Vital Signs
Temp Pulse Resp BP Pulse Ox
98.4 F 92 18 126/74 92
03/30/25 03:37 03/30/25 03:37 03/30/25 03:37 03/30/25 03:37 03/30/25 03:37
MDM/Problems Addressed
Differential Diagnosis Includes:
Differentials include SBO, diverticulitis, appendicitis, LBO,
MDM/Problems Addressed:
59-year-old male with a past medical history of treacher gonzalez syndrome, tracheoesophageal fistula at , mitral regurgitation, hypertension, who presents emergency department today with concerns of abdominal pain and vomiting. He states this
feels similar to small bowel obstruction. He has a history of multiple small bowel obstructions in the past. On chart review, patient was seen here for multiple small bowel obstructions, there was discussion of possible surgery however patient
opted for conservative management. CT scan today reveals high-grade small bowel obstruction with transition point pain in the left abdomen. Reviewed findings with patient. Patient referred for hospice remission. Patient cannot get NG tube at
this time due to history of craniofacial abnormalities.
*Pulse Oximetry
Patient hypoxic: no
*Critical Care Note
Total Time (30-74mins, 75-104mins- exclusive of procedures): Not Applicable
Data Reviewed
Review of Other/Old Records Reveals: Records (Reviewed discharge planning summary from 04/03/2024 patient seen for small bowel obstruction)
ED Attending Note
-
Portions of this chart may have been created with voice recognition software.� Occasional wrong word or��sound alike� substitutions may have occurred due to the inherent limitations of voice recognition software.
Discharge Plan
Departure
Patient Disposition: Admit
Date of Disposition: 03/30/25
Time of Disposition: 01:11
Admit to: Med/Surg
Presentation/result/management discussed w/ accepting MD/DO: Hospitalist
Condition: Fair
Discharge Problem:
SBO (small bowel obstruction)
Interventions
Interventions:
*Risk Screen - Suicide Last Done: 03/29/25 19:47
*General Assessment Last Done: 03/29/25 23:07
*Neglect/Abuse Screening Last Done: 03/29/25 23:07
*ED- Fall Risk Assessment Last Done: 03/29/25 23:07
*ED COVID-19 Vaccine History Last Done: 03/29/25 23:07
*Nursing Disposition Last Done: 03/30/25 03:48
TN-Mvnlvm-Hrkvbrkkyr Assessment Last Done: 03/29/25 23:07
Discharge Date and Time
Discharge Date/Time: 03/30/25 03:20
[2025-03-29 23:20] VITALS: BMI 41.5
[2025-03-29 23:31] VITALS: BP 118/74
[2025-03-29] MEDS: DILAUDID 0.5 MG IV (23:35)
[2025-03-29] MEDS: NSS 1000 IV (23:37)
[2025-03-29] MEDS: ZOFRAN 4 MG IV (23:37)
[2025-03-30] VITALS (7 sets, daily range): BP systolic 96–150; BP diastolic 64–85; BMI 41.2
[2025-03-30 02:17] LABS: Urine Albumin 1+ (Neg - Trace); Urine Bilirubin Negative (Negative); Urine Character Clear (Clear); Urine Color Amber; Urine Glucose Negative (Negative); Urine Ketone 1+ (Negative); Urine Leukocyte Negative (Negative); Urine Nitrite Negative (Negative); Urine Occult Blood 1+ (Negative); Urine Specific Gravity 1.015 (<1.030); Urine Urobilinogen Negative (Neg - 1+); Urine pH 6.5 (5.0-9.0)
--- NOTE | 2025-03-30 02:24 | HPS.HSE ---
Addendum entered and electronically signed by Kelli Duke MD 04/08/25 07:11:
This addendum is to correct the first-line of the history of present illness.
This is a 60-year-old male, who has a past medical history of Treacher-Barriga syndrome and recurrent small bowel obstructions presenting to the emergency department with acute episode of abdominal pain nausea and vomiting.
Original Note:
Family Physician
-
Family Physician: NO INTERVIEW UNKNOWN
Chief Complaint
-
Abdominal pain
History of Present Illness
This is a 6-year-old male with past medical history of Treacher-Barriga syndrome and prior recurrent small bowel obstructions who presents to the emergency department with acute episode of abdominal pain nausea and vomiting.
Patient reported that symptoms began at around 4 PM acutely. He said she had diffuse and epigastric abdominal pain with nausea and vomiting that was nonbloody. It was nonbilious it was content of the food he had recently eaten. Patient reported
that he also had multiple bowel movements that same day with last bowel movement at around 5 PM. He denies passing any gas recently.
Patient has been admitted to the hospital several times with last episode 1 year ago for small bowel obstruction. With history of this episode he reports that he has never needed surgery. He also does not tolerate NGT due to craniofacial anatomy
and surgeries. He denies any coughing at this moment. He denies nausea but is still having abdominal pain.
In the emergency department he was afebrile, blood pressure was 117/60 with a pulse of 92 satting 97% on room air.
Stay had a leukocytosis of 17,000 and hemoglobin was stable at 69. Count was normal. Electrolytes BUN/creatinine were all in the normal range with a normal glucose level.
CT of the abdomen pelvis showed high-grade small bowel obstruction with transition point seen in the left side of the abdomen which is preceded by prominently dilated fecalized loops of small bowel, cholelithiasis was noted as well without acute
cholecystitis.
Medical History
Past Medical History
Past Medical History: Reports Other
Additional Past Medical History:
Treacher-Barriga Syndrome
Hypertension
Recurrent SBO
Past Surgical History: Reports Other
Additional Past Surgical History:
Tracheoesophageal Fistula Repair
Facial Reconstructive Surgery
Gastrostomy Tube
Social History
Tobacco: Non-smoker
Alcohol: None
Drug: None
Family History
Family History: Not pertinent
Allergies / Home Medications
Allergies reflects when Allergies were last updated in [facility].
Home Medications with original date entered in [facility]
Allergy/Medication List:
Allergies
Allergy/AdvReac Type Severity Reaction Status Date / Time
environmental Allergy Nasal Uncoded 03/31/24 18:46
Congestion
Home Medications
docosahexaenoic acid (dha)-epa 120 mg-180 mg capsule 1 cap PO DAILY Supplement 09/25/17
lisinopril 5 mg tablet 5 mg PO DAILY Blood Pressure 09/25/17
therapeutic multivitamin 1 tab PO DAILY Supplement 06/21/23
calcium carbonate 500 mg PO DAILY 03/31/24
Review of Systems
-
History Source: Patient
A 12 point ROS was completed and negative except as noted: Yes
Constitutional: Denies Fever or Chills
EENT: Reports No Symptoms
Respiratory: Denies Cough or Trouble Breathing
Cardiac: Denies Chest Pain or Palpitations
Abdomen/GI: Reports Abdominal Pain, Nausea and Vomiting; Denies Diarrhea or Constipated
: Reports No Symptoms
Musculoskeletal: Reports No Symptoms
Skin: Reports No Symptoms
Neurological: Reports No Symptoms
Endocrine: Reports No Symptoms
Hematologic/Lymphatic: Reports No Symptoms
Psych: Reports No Symptoms
Physical Exam
Vital Signs
Vital Signs
Temp Pulse Resp BP Pulse Ox
99 F 92 15 117/68 97
03/29/25 19:46 03/30/25 01:45 03/30/25 01:45 03/30/25 01:00 03/30/25 01:45
Physical Exam
General: Well Developed, Well Nourished and No Apparent Distress
HEENT: Moist mucous membranes and PERRLA
Respiratory: Clear; No Wheezes, Rales or Rhonchi
Cardiac: S1/S2 and Regular Rhythm; No Murmur
GI: Soft, Normal Bowel Sounds and Other (Abdomen softly distended, mildly tender at umbilicus. Bowel sounds are evident.)
Musculoskeletal: No Clubbing, No Cyanosis and No Edema
Neuro: AO x 3
Laboratory Results
-
03/29/25 19:55
03/29/25 19:55
Laboratory Results
Total Bilirubin 1.0 mg/dl (0.2-1.3) 03/29/25 19:55
AST 29 U/L (17-59) 03/29/25 19:55
ALT 41 U/L (0-50) 03/29/25 19:55
Alkaline Phosphatase 84 U/L (38-126) 03/29/25 19:55
Lipase Cancelled 03/29/25 23:16
Data Reviewed
-
CT Scan: Report Reviewed by me
Lab Data: Labs Reviewed by me
Old Records: Reviewed
Impression/Plan
-
IMPRESSION:
60-year-old male with history of Treacher-Barriga syndrome and recurrent small bowel obstructions with last episode 1 year ago presenting to the emergency department with episode of small bowel obstruction associated with nausea vomiting and
abdominal pain. He is not currently vomiting. There is high-grade stenosis and a transition point in the left side of the abdomen. He is currently with mild pain. He is not short of breath denies any cough fevers or chills. He is afebrile. In
the past he has been managed conservatively and family had declined surgery. He cannot tolerate NG tube due to a prior craniofacial surgeries and anatomy
PLAN:
SBO
- admit to med/surg
- NPO for now
- holding lisinopril for now
- antiemetics, pain control and iv fluids
- No NGT due to craniofacial anomaly and surgeris.
- likely will not accede to surgery
- monitor for vomiting, fevers
- surgery consulted
DVT PPX - lovenox sq
Code status - full code
[2025-03-30 02:27] LABS: Urine Red Blood Cell 0-2 /HPF (0-2)
[2025-03-30 02:28] LABS: Urine Granular Cast 0-2 /LPF (0); Urine White Cell None Seen /HPF (0-5)
[2025-03-30] MEDS: ZOFRAN 4 MG IV ×2 (02:36→18:29)
[2025-03-30] MEDS: DILAUDID 0.5 MG IV ×2 (02:40→21:19)
[2025-03-30] MEDS: TORADOL 30 MG IV (03:20)
[2025-03-30] MEDS: D5LR 1000 IV ×3 (03:42→22:58)
[2025-03-30 08:05] LABS: Hematocrit 40.1 % (39.0-52.0); Mean Corp Hgb Conc. 34.9 g/dL (33.0-37.0); Mean Corpuscular Hgb 31.1 pg (27.0-31.0); Mean Corpuscular Volume 89.1 fL (80.0-94.0); Mean Platelet Volume 9.1 fL (7.4-10.4); Platelet Count 291 10^3/uL (130-400); Red Cell Dist. Width 13.4 % (11.5-14.5)
[2025-03-30 08:42] LABS: Blood Urea Nitrogen 15 mg/dl (9-20); Calcium 9.3 mg/dl (8.4-10.2); Carbon Dioxide 25 mmol/L (22-30); Chloride 109 mmol/L (98-107); Estimated Creatinine Clearance 71 ml/min; Glucose 107 mg/dl (70-99); Potassium 4.4 mmol/L (3.5-5.1); Sodium 141 mmol/L (135-145); eGFR > 60.00
[2025-03-30] MEDS: TORADOL 10 MG IV ×2 (10:53→16:53)
--- NOTE | 2025-03-30 11:27 | CM ---
comp field case manager reviewed patient's chart and met with patient to complete IA. He lives with his mother in a 2 story home. Alfonso reports independence with adl's and ambulation at baseline. No DME, patient drives in the community.
Plan: CM to follow for discharge planning needs; possible need for surgery due to SBO.
PCP: Dr. Roman
Pharm: [facility]
--- NOTE | 2025-03-30 12:07 | W.PN.HOSP.TC ---
Today's Communication/Plan
-
see A/P
Assessment / Plan
Assessment / Plan
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
Symptoms began at around 4 PM on DOA.
Patient has been admitted to the hospital several times with last episode 1 year ago for small bowel obstruction.
CT of the abdomen pelvis showed high-grade small bowel obstruction with transition point seen in the left side of the abdomen which is preceded by prominently dilated fecalized loops of small bowel, cholelithiasis was noted as well without acute
cholecystitis.
A/P:
# SBO
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
NPO for now with IVF , holding PO meds
Cont pain control, antiemetics
IV PPI for gastric protection
GS on board
# Treacher-Barriga syndrome
DVT PPX - lovenox sq
Code status - full code
DW RN
Anticipated Discharge: 24 - 48 hours
Subjective/Interval History
-
Date of Service: March 30, 2025
Objective Data
-
Labs:
Laboratory Results
03/30/25
07:15
WBC 12.0 H
Hgb 14.0
Hct 40.1
Plt Count 291
Sodium 141
Potassium 4.4
Chloride 109 H
Carbon Dioxide 25
BUN 15
Creatinine 0.9
Glucose 107 H
Calcium 9.3
Vital Signs:
Vital Signs
Temp Pulse Resp BP Pulse Ox
36.8 C 77 16 117/75 96
03/30/25 07:53 03/30/25 07:53 03/30/25 07:53 03/30/25 07:53 03/30/25 08:43
I&O
03/29/25 03/30/25 03/31/25
06:59 06:59 06:59
Intake Total 300 / 300
Balance 300 / 300
Review of Systems
-
History Source: Patient
All other systems: Reviewed and negative
Abdomen/GI: Denies Abdominal Pain (improved)
Physical Exam
-
General: Well Nourished, No Apparent Distress, Comfortable and Conversant; Negative Respiratory Distress
HEENT: Normocephalic, Atraumatic, Nose Appears Normal and Ears Appear Normal; Negative Oxygen
Respiratory: Clear to Auscultation and Non Labored Respirations; Negative Accessory Resp Muscle Use
Cardiac: Regular Rhythm and S1/S2
GI: Soft, Nontender, Nondistended and Normal Bowel Sounds
Skin: Warm and Dry
Neuro: Awake, Alert and Oriented
Psych: Calm and Intact Judgement/Insight
Data Reviewed
-
CT Scan: Report Reviewed by me
Labs: Labs Reviewed by me
[2025-03-30] MEDS: PROTONIX IV 40 MG IV (13:07)
[2025-03-30] MEDS: NSS (PRESERVATIVE FREE) 10 ML IV (13:07)
--- NOTE | 2025-03-30 16:09 | CON.GS ---
Consultation
-
Date/Time Consultation Performed: 03/30/25
Requesting Provider: jairon
Performing Provider: blank
Reason for Consultation: SBO
Medical History
-
Chief Complaint: Abd pain and n/v
History of Present Illness:
60M with acute onset abd pain that began yesterday after eating a large serving of onions and peppers. He reports this is not a typical meal for him. Emesis x1, mostly consisted of the food he ate. He had multiple BMs after that. He endorse passing
gas since admit. He reports his nausea has resolved and pain improved but not resolved.
Past Medical History
Past Medical History: Other (Treacher-Barriga Syndrome Hypertension Recurrent SBO)
Past Surgical History: Other (Tracheoesophageal Fistula Repair Facial Reconstructive Surgery Gastrostomy Tube)
Social History
Tobacco: Non-Smoker
Alcohol: None
Drug: None
Family History
Family History: Reviewed & Noncontributory
Allergies / Home Medications
Allergy/AdvReac Type Severity Reaction Status Date / Time
environmental Allergy Nasal Uncoded 03/31/24 18:46
Congestion
�Medication �Instructions �Recorded �Confirmed �Type
docosahexaenoic acid (dha)-epa 120 1 cap PO DAILY Supplement 09/25/17 03/30/25 History
mg-180 mg capsule
lisinopril 5 mg tablet 5 mg PO DAILY Blood Pressure 09/25/17 03/30/25 History
therapeutic multivitamin 1 tab PO DAILY Supplement 06/21/23 03/30/25 History
calcium carbonate 500 mg PO DAILY supplement 03/31/24 03/30/25 History
Review of Systems
-
A 10 point review of systems was completed, and was negative except as per HPI.
Physical Exam
Vital Signs
Temp Pulse Resp BP Pulse Ox
98.4 F 96 20 150/85 92
03/30/25 16:00 03/30/25 16:00 03/30/25 16:00 03/30/25 16:00 03/30/25 16:00
03/29/25 03/30/25 03/31/25
06:59 06:59 06:59
Actual Weight 83.37 kg
Body Mass Index (BMI) 41.2
Lab Results
03/30/25 07:15
03/30/25 07:15
WBC 12.0 10^3/uL (4.8-10.8) H 03/30/25 07:15
Hgb 14.0 g/dL (13.0-18.0) 03/30/25 07:15
Hct 40.1 % (39.0-52.0) 03/30/25 07:15
Plt Count 291 10^3/uL (130-400) 03/30/25 07:15
Abs Immat Gran (auto) 0.1 10^3/uL (0-0.05) H 03/29/25 19:55
Neutrophils % 86.7 % (42.2-75.2) H 03/29/25 19:55
Physical Exam
General: No Apparent Distress
GI: Soft, Non Tender, Distended (mild) and Obese
Skin: Warm and Dry
Neuro: AO x 3
Psych: Calm
Data Reviewed
-
CT Scan: Image Personally Visualized and interpreted and Report Reviewed by me
Labs: Labs Reviewed by me
Assessment / Plan
-
60M with pSBO likel 2/2 dietary indiscretion
AFVSS, clinically improving with reolsution of nausea and improvement in pain
Exam benign
Leukocytosis improving
CT with dilated sb loops and mid abdomen transition point just distal to large fecalized sb loop that likely represents a food bolus
CT from 2023 with similar appearance, similar location
Plan:
NPO/IVF
Monitor for ROBF
Ambulate
Consider PO contrast imaging if no improvement over next 24 hrs
DVT ppx
D/w sister by phone. They will consider surgery given similar location of the problem and recurrent nature of the problem.
[2025-03-30] MEDS: LOVENOX 40 MG SC (16:51)
[2025-03-31] MEDS: ZOFRAN 4 MG IV ×3 (00:54→22:14)
[2025-03-31] MEDS: TORADOL 10 MG IV ×2 (00:54→16:43)
[2025-03-31 07:31] VITALS: BP 116/66
[2025-03-31] MEDS: PROTONIX IV 40 MG IV (08:05)
[2025-03-31] MEDS: NSS (PRESERVATIVE FREE) 10 ML IV (08:05)
[2025-03-31 08:30] LABS: Hemoglobin 13.7 g/dL (13.0-18.0); Mean Corp Hgb Conc. 34.3 g/dL (33.0-37.0); Mean Corpuscular Hgb 31.2 pg (27.0-31.0); Mean Corpuscular Volume 91.1 fL (80.0-94.0); Mean Platelet Volume 8.9 fL (7.4-10.4); Platelet Count 255 10^3/uL (130-400); Red Blood Cell Count 4.39 10^6/uL (4.70-6.10); Red Cell Dist. Width 13.5 % (11.5-14.5); White Blood Cell Count 7.4 10^3/uL (4.8-10.8)
[2025-03-31 09:03] LABS: Blood Urea Nitrogen 12 mg/dl (9-20); Calcium 9.2 mg/dl (8.4-10.2); Carbon Dioxide 24 mmol/L (22-30); Chloride 110 mmol/L (98-107); Estimated Creatinine Clearance 71 ml/min; Glucose 97 mg/dl (70-99); Magnesium 1.9 mg/dl (1.6-2.3); Potassium 4.3 mmol/L (3.5-5.1); Sodium 140 mmol/L (135-145); eGFR > 60.00
[2025-03-31] MEDS: D5LR 1000 IV ×2 (09:07→21:44)
--- NOTE | 2025-03-31 11:19 | W.PN.GS2 ---
Today's Communication / Plan
-
CLD
Assessment / Plan
-
60M with pSBO 2/2 dietary indiscretion, resolving
AFVSS, clinically improved with pain/nausea resolution and passage of flatus
Plan:
Trial CLD
Ambulate
DVT ppx
All other care as per primary team
If he continues to improve, will plan for outpt f/u to review images with pt and family and discuss surgical options
Subjective Data
-
Date of Service: March 31, 2025
AFVSS, pain resolved, denies n/v, passing flatus
Objective Data
-
Intake and Output
03/30/25 03/31/25 04/01/25
06:59 06:59 06:59
Intake Total 300 / 300 2400 / 2400
Balance 300 / 300 2400 / 2400
Intake:
IV fluids (Total) 300 / 300 2400 / 2400
Other:
Number of approximated SMALL 1
amounts of urine
Number of approximated MODERATE 1 2
amounts of urine
Number of approximated LARGE 1
amounts of urine
Vital Signs
Temp Pulse Resp BP Pulse Ox
98.2 F 63 17 116/66 96
03/31/25 07:31 03/31/25 07:31 03/31/25 07:31 03/31/25 07:31 03/31/25 07:31
Lab Results
03/31/25 08:01
03/31/25 08:01
Calcium 9.2 mg/dl (8.4-10.2) 03/31/25 08:01
Magnesium 1.9 mg/dl (1.6-2.3) 03/31/25 08:01
Total Bilirubin 1.0 mg/dl (0.2-1.3) 03/29/25 19:55
AST 29 U/L (17-59) 03/29/25 19:55
ALT 41 U/L (0-50) 03/29/25 19:55
Alkaline Phosphatase 84 U/L (38-126) 03/29/25 19:55
Total Protein 7.8 g/dl (6.3-8.2) 03/29/25 19:55
Albumin 5.1 g/dl (3.5-5.0) H 03/29/25 19:55
Physical Exam
-
Gen: NAD
Abd: soft, nt, nd, obese
Patient has a watson catheter: No
Patient has a central line: No
--- NOTE | 2025-03-31 12:06 | PN.CDI ---
CDI
- -
CDI:
Physician Documentation Request
Admit Date: 03/30/25 02:42
Dear Doctor Pepe,
Please review the following and provide your response in the progress notes.
Clinical Indicators:
Height: 4 ft 8 in
Weight: 185 lbs
BMI:41.5
Please provide an associated diagnosis related to the abnormal BMI:
BMI > or = to 40
Overweight
Obesity:
Due to excess calories
Drug induced
Due to other cause
Severe or morbid obesity:
With alveolar hypoventilation (Obesity hypoventilation syndrome)
Without alveolar hypoventilation
- BMI is not significant
- Other
Use of terms such as suspected, likely, concern for, or probable (associated with a specific diagnosis that is being evaluated, monitored, or treated as if it exists) are acceptable and can be coded in the inpatient setting, when documented at the
time of discharge.
Thank you,
Mallorie Harris RN, BSN
CDI Specialist
tiger text
Please use your independent medical judgment in providing your response.
--- NOTE | 2025-03-31 12:44 | W.PN.HOSP.TC ---
Addendum entered and electronically signed by Sayda Cantu MD 03/31/25 12:55:
# BMI is not significant
Original Note:
Today's Communication/Plan
-
see A/P
Assessment / Plan
Assessment / Plan
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
Symptoms began at around 4 PM on DOA.
Patient has been admitted to the hospital several times with last episode 1 year ago for small bowel obstruction.
CT of the abdomen pelvis showed high-grade small bowel obstruction with transition point seen in the left side of the abdomen which is preceded by prominently dilated fecalized loops of small bowel, cholelithiasis was noted as well without acute
cholecystitis.
A/P:
# SBO
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
trial of CLD today
Cont ambulation
Cont pain control, antiemetics
IV PPI for gastric protection
Appreciate GS input
# Treacher-Barriga syndrome
DVT PPX - lovenox sq
Code status - full code
Anticipated Discharge: Within 24 hours
Subjective/Interval History
-
Date of Service: March 31, 2025
Objective Data
-
Labs:
Laboratory Results
03/31/25
08:01
WBC 7.4
Hgb 13.7
Hct 40.0
Plt Count 255
Sodium 140
Potassium 4.3
Chloride 110 H
Carbon Dioxide 24
BUN 12
Creatinine 0.9
Glucose 97
Calcium 9.2
Vital Signs:
Vital Signs
Temp Pulse Resp BP Pulse Ox
36.8 C 63 17 116/66 96
03/31/25 07:31 03/31/25 07:31 03/31/25 07:31 03/31/25 07:31 03/31/25 07:31
I&O
03/30/25 03/31/25 04/01/25
06:59 06:59 06:59
Intake Total 300 / 300 2400 / 2400
Balance 300 / 300 2400 / 2400
Review of Systems
-
History Source: Patient
All other systems: Reviewed and negative
Abdomen/GI: Denies Abdominal Pain (improved)
Physical Exam
-
General: Well Nourished, No Apparent Distress, Comfortable and Conversant; Negative Respiratory Distress
HEENT: Normocephalic, Atraumatic, Nose Appears Normal and Ears Appear Normal; Negative Oxygen
Respiratory: Clear to Auscultation and Non Labored Respirations; Negative Accessory Resp Muscle Use
Cardiac: Regular Rhythm and S1/S2
GI: Soft, Nontender, Nondistended and Normal Bowel Sounds
Skin: Warm and Dry
Neuro: Awake, Alert and Oriented
Psych: Calm and Intact Judgement/Insight
Data Reviewed
-
CT Scan: Report Reviewed by me
Labs: Labs Reviewed by me
[2025-03-31 15:09] VITALS: BP 142/80
[2025-03-31 15:32] LABS: Hepatitis C Antibody Negative (Negative)
[2025-03-31] MEDS: LOVENOX 40 MG SC (16:43)
[2025-03-31 23:12] VITALS: BP 126/67
[2025-04-01 07:30] VITALS: BP 128/69
[2025-04-01 07:43] LABS: Hematocrit 39.9 % (39.0-52.0); Hemoglobin 13.5 g/dL (13.0-18.0); Mean Corp Hgb Conc. 33.8 g/dL (33.0-37.0); Mean Corpuscular Hgb 30.6 pg (27.0-31.0); Mean Corpuscular Volume 90.5 fL (80.0-94.0); Platelet Count 282 10^3/uL (130-400); Red Blood Cell Count 4.41 10^6/uL (4.70-6.10); Red Cell Dist. Width 13.3 % (11.5-14.5); White Blood Cell Count 7.7 10^3/uL (4.8-10.8)
[2025-04-01 08:06] LABS: Blood Urea Nitrogen 6 mg/dl (9-20); Calcium 9.5 mg/dl (8.4-10.2); Carbon Dioxide 31 mmol/L (22-30); Chloride 108 mmol/L (98-107); Estimated Creatinine Clearance 64 ml/min; Glucose 92 mg/dl (70-99); Potassium 4.1 mmol/L (3.5-5.1); Sodium 144 mmol/L (135-145); eGFR > 60.00
[2025-04-01] MEDS: NSS (PRESERVATIVE FREE) 10 ML IV (08:52)
[2025-04-01] MEDS: PROTONIX IV 40 MG IV (08:52)
--- NOTE | 2025-04-01 09:41 | W.PN.GS2 ---
Addendum entered and electronically signed by Jan Elam MD 04/01/25 11:16:
Patient seen and examined.
No complaints. Feels improved. Pain well-controlled. Denies nausea or vomiting. Passing flatus, no BM. Afebrile
Gen: NAD
Abd: soft, NT, obese, mild distension, non-peritoneal
Patient is a 60 yo M with pSBO 2/2 dietary indiscretion
AFVSS
Episode of nausea last night, but no nausea today
Continue pass flatus, denies pain
Plan:
-- FLD
-- Ambulate
-- DVT ppx
-- All other care as per primary team
If he continues to improve, will plan for outpt f/u to review images with pt and family and discuss surgical options
Original Note:
Today's Communication / Plan
-
FLD
Assessment / Plan
-
60M with pSBO 2/2 dietary indiscretion, resolving
AFVSS
Episode of nausea last night, but no nausea today
Continue pass flatus, denies pain
Plan:
Advance to FLD
Ambulate
DVT ppx
All other care as per primary team
If he continues to improve, will plan for outpt f/u to review images with pt and family and discuss surgical options
Subjective Data
-
Date of Service: April 01, 2025
Patient seen and examined at bedside. OOB to chair. Denies abd pain. Passing flatus, no stools as of yet. Denies n/v. Tolerating CLD.
Objective Data
-
Intake and Output
03/31/25 04/01/25 04/02/25
06:59 06:59 06:59
Intake Total 2400 / 2400 1660 / 1660
Balance 2400 / 2400 1660 / 1660
Intake:
Oral fluids 780 / 780
IV fluids (Total) 2400 / 2400 880 / 880
Other:
Number of approximated SMALL 1
amounts of urine
Number of approximated MODERATE 2 3
amounts of urine
Number of approximated LARGE 1
amounts of urine
Vital Signs
Temp Pulse Resp BP Pulse Ox
98.0 F 49 17 128/69 99
04/01/25 07:30 04/01/25 07:30 04/01/25 07:30 04/01/25 07:30 04/01/25 07:30
Lab Results
04/01/25 07:22
04/01/25 07:22
Calcium 9.5 mg/dl (8.4-10.2) 04/01/25 07:22
Magnesium 1.9 mg/dl (1.6-2.3) 03/31/25 08:01
Total Bilirubin 1.0 mg/dl (0.2-1.3) 03/29/25 19:55
AST 29 U/L (17-59) 03/29/25 19:55
ALT 41 U/L (0-50) 03/29/25 19:55
Alkaline Phosphatase 84 U/L (38-126) 03/29/25 19:55
Total Protein 7.8 g/dl (6.3-8.2) 03/29/25 19:55
Albumin 5.1 g/dl (3.5-5.0) H 03/29/25 19:55
Physical Exam
-
Gen: NAD
Abd: soft, nt, nd, obese
Patient has a watson catheter: No
Patient has a central line: No
[2025-04-01] MEDS: D5LR IV (10:49)
--- NOTE | 2025-04-01 11:10 | W.PN.HOSP.TC ---
Today's Communication/Plan
-
diet to full liquids today
stop IVF
anticipate d/c in 1-2 days
apprec surgery
Assessment / Plan
Assessment / Plan
pt is a 60 year old male
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
Treacher-Barriga syndrome--noted
DVT Proph - lovenox sq
Code status - full code
Anticipated Discharge: 24 - 48 hours
Subjective/Interval History
-
Date of Service: April 01, 2025
pt had BM--doing well--diet advancing per surgery
Objective Data
-
Labs:
Laboratory Results
04/01/25
07:22
WBC 7.7
Hgb 13.5
Hct 39.9
Plt Count 282
Sodium 144
Potassium 4.1
Chloride 108 H
Carbon Dioxide 31 H
BUN 6 L
Creatinine 1.0
Glucose 92
Calcium 9.5
Vital Signs:
max temp for 24 hours
03/31/25
15:09
Temp 98.9 F
Vital Signs
Temp Pulse Resp BP Pulse Ox
98.0 F 49 17 128/69 99
04/01/25 07:30 04/01/25 07:30 04/01/25 07:30 04/01/25 07:30 04/01/25 07:30
I&O
03/31/25 04/01/25 04/02/25
06:59 06:59 06:59
Intake Total 2400 / 2400 1660 / 1660 300 / 300
Balance 2400 / 2400 1660 / 1660 300 / 300
Review of Systems
-
All other systems: Reviewed and negative
Physical Exam
-
General: Well Developed, Well Nourished and No Apparent Distress
HEENT: Normocephalic and Atraumatic
Respiratory: Clear to Auscultation; Negative Wheezes or Rhonchi
Cardiac: Regular Rhythm and S1/S2; Negative Murmur
GI: Soft, Nontender, Nondistended and Normal Bowel Sounds
Musculoskeletal: No Clubbing, No Cyanosis and No Edema
Neuro: Awake and Alert
Psych: Calm
--- NOTE | 2025-04-01 14:39 | CM ---
Discharge POC: Anticipate No Needs.
[2025-04-01 15:12] VITALS: BP 138/68
[2025-04-01] MEDS: LOVENOX 40 MG SC (18:25)
--- NOTE | 2025-04-01 20:00 | PTCARENOTE ---
Patient adamantly asking IV to be removed as 'it is bothering'. IV access removed as patient request.
[2025-04-01 23:16] VITALS: BP 103/48
[2025-04-02 07:00] LABS: Hematocrit 40.6 % (39.0-52.0); Hemoglobin 14.3 g/dL (13.0-18.0); Mean Corp Hgb Conc. 35.2 g/dL (33.0-37.0); Mean Corpuscular Hgb 31.2 pg (27.0-31.0); Mean Corpuscular Volume 88.5 fL (80.0-94.0); Mean Platelet Volume 8.7 fL (7.4-10.4); Platelet Count 279 10^3/uL (130-400); Red Blood Cell Count 4.59 10^6/uL (4.70-6.10); Red Cell Dist. Width 13.1 % (11.5-14.5); White Blood Cell Count 7.3 10^3/uL (4.8-10.8)
[2025-04-02 07:25] LABS: Blood Urea Nitrogen 6 mg/dl (9-20); Calcium 9.6 mg/dl (8.4-10.2); Carbon Dioxide 31 mmol/L (22-30); Chloride 107 mmol/L (98-107); Estimated Creatinine Clearance 71 ml/min; Glucose 97 mg/dl (70-99); Potassium 4.4 mmol/L (3.5-5.1); Sodium 143 mmol/L (135-145); eGFR > 60.00
[2025-04-02] MEDS: PROTONIX IV IV (07:36)
[2025-04-02] MEDS: NSS (PRESERVATIVE FREE) IV (07:36)
[2025-04-02 08:00] VITALS: BP 123/86
--- NOTE | 2025-04-02 11:04 | CM ---
Addendum entered by Justin Gilbert 04/02/25 14:48:
Discharge order noted. Pt is aware, expressed his agreement.
No after care VN services indicated.
D/C plan: home no needs. Family to transport.
Original Note:
CM following re: discharge planning.
Reviewed pt's chart, met with pt.
Pt reports he lives with his mother in a 2 story home and described himself as independent in all areas [employer].
IMM reviewed, placed on chart, pt has a copy.
D/C plan: home no needs.
CM will follow with discharge plan updates as needed.
--- NOTE | 2025-04-02 13:37 | W.PN.GS2 ---
Addendum entered and electronically signed by Jan Elam MD 04/02/25 13:51:
Patient seen and examined.
No complaints. Pain well-controlled. Continues to pass flatus, last BM yesterday. Tolerating liquid diet without nausea or vomiting. Ambulating. Afebrile.
Gen: NAD
Abd: soft, NT, stable obesity/distension, non-peritoneal
60M with pSBO 2/2 dietary indiscretion, resolving
AFVSS
Continue pass flatus, BM last night, denies pain
-- Advance to LRD, ok for d/c from surgical standpoint once tolerating
-- OOB/ambulate
-- DVT: Lovenox
-- All other care as per primary team
Will plan for outpt f/u to review images with pt and family and discuss surgical options
Original Note:
Today's Communication / Plan
-
LRD
Assessment / Plan
-
60M with pSBO 2/2 dietary indiscretion, resolving
AFVSS
Continue pass flatus, bm last night, denies pain
Plan:
Advance to LRD, ok for d/c from surgical standpoint once tolerating
Ambulate
DVT ppx
All other care as per primary team
Will plan for outpt f/u to review images with pt and family and discuss surgical options
Subjective Data
-
Date of Service: April 02, 2025
Patient seen and examined at bedside with Dr. Elam. Denies n/v. Denies pain. Passing flatus. Had a BM yesterday.
Objective Data
-
Intake and Output
04/01/25 04/02/25 04/03/25
06:59 06:59 06:59
Intake Total 0 / 1660 1680 / 1680
Balance 1660 / 1660 1680 / 1680
Intake:
Oral fluids 780 / 780 1679
IV fluids (Total) 880 / 880
Other:
Number of approximated MODERATE 3 2
amounts of urine
Vital Signs
Temp Pulse Resp BP Pulse Ox
98.6 F 60 16 123/86 97
04/02/25 08:00 04/02/25 08:00 04/02/25 08:00 04/02/25 08:00 04/02/25 08:00
Lab Results
04/02/25 06:35
04/02/25 06:35
Calcium 9.6 mg/dl (8.4-10.2) 04/02/25 06:35
Magnesium 1.9 mg/dl (1.6-2.3) 03/31/25 08:01
Total Bilirubin 1.0 mg/dl (0.2-1.3) 03/29/25 19:55
AST 29 U/L (17-59) 03/29/25 19:55
ALT 41 U/L (0-50) 03/29/25 19:55
Alkaline Phosphatase 84 U/L (38-126) 03/29/25 19:55
Total Protein 7.8 g/dl (6.3-8.2) 03/29/25 19:55
Albumin 5.1 g/dl (3.5-5.0) H 03/29/25 19:55
Physical Exam
-
Gen: NAD
Abd: soft, nt, nd, obese
Patient has a watson catheter: No
Patient has a central line: No
--- NOTE | 2025-04-02 14:03 | W.PN.HOSP.TC ---
Today's Communication/Plan
-
d/c
Assessment / Plan
Assessment / Plan
pt is a 60 year old male
SBO---had BM--passing flatus---stop IVF--Cont pain control, antiemetics--tolerated solid food--apprec surgery
Treacher-Barriga syndrome--noted
DVT Proph - lovenox sq
Code status - full code
Anticipated Discharge: Today
Subjective/Interval History
-
Date of Service: April 02, 2025
pt tolerated solid diet
Objective Data
-
Labs:
Laboratory Results
04/02/25
06:35
WBC 7.3
Hgb 14.3
Hct 40.6
Plt Count 279
Sodium 143
Potassium 4.4
Chloride 107
Carbon Dioxide 31 H
BUN 6 L
Creatinine 0.9
Glucose 97
Calcium 9.6
Vital Signs:
max temp for 24 hours
04/01/25
15:12
Temp 98.7 F
Vital Signs
Temp Pulse Resp BP Pulse Ox
98.6 F 60 16 123/86 97
04/02/25 08:00 04/02/25 08:00 04/02/25 08:00 04/02/25 08:00 04/02/25 08:00
I&O
04/01/25 04/02/25 04/03/25
06:59 06:59 06:59
Intake Total 0 / 1660 168 / 1680
Balance 1660 / 1660 168 / 168
Review of Systems
-
All other systems: Reviewed and negative
Physical Exam
-
General: Well Developed, Well Nourished and No Apparent Distress
HEENT: Normocephalic and Atraumatic
Respiratory: Clear to Auscultation; Negative Wheezes or Rhonchi
Cardiac: Regular Rhythm and S1/S2; Negative Murmur
GI: Soft, Nontender, Nondistended and Normal Bowel Sounds
Musculoskeletal: No Clubbing, No Cyanosis and No Edema
[2025-04-02 14:45] VITALS: BP 124/77
--- NOTE | 2025-04-03 06:31 | W.DCSUMMARY ---
Discharge Summary
Discharge Data
Date of Admission: 03/30/25
Date of Discharge: 04/02/25
-
Pending Results: No
Hospital Course
Primary care physician : Not Listed
Principal Discharge diagnosis : Small bowel obstruction
Chronic Discharge diagnosis : Treacher-Barriga syndrome, essential hypertension
Hospital Course : Patient was a 60-year-old male who has had prior recurrent small bowel obstructions in the past who presented with an acute episode of abdominal pain, nausea, and vomiting. Symptoms began around 4 PM on the day of admission. Last
episode was approximately 1 year prior. CAT scan of the abdomen and pelvis done in the emergency department showed a high-grade small bowel obstruction with a possible transition point in the left side of the abdomen and the patient was admitted.
Problem #1: Small bowel obstruction. Patient was admitted and was seen in consultation by surgery. He was made n.p.o. and given IV fluids. Patient eventually started passing gas and had bowel movements. His diet was advanced and he was
tolerating solid food by the time of discharge. He did not require any surgery.
Problem #2: All other medical issues. These include Treacher-Barriga syndrome and essential hypertension. These medical issues were stable during his hospitalization. Medications were continued as able.
Patient is stable for discharge home at this time. If there are any questions regarding this dictation or his hospital stay, please do not hesitate to call. Our office number is [phone].
Important imaging findings :
CT SCAN ABDOMEN/PELVIS IMPRESSION:
Developing small bowel obstruction with a transition point in the central abdomen just to the left of midline.
Discharge Plan
-
Patient Disposition: Home (Routine Discharge)
Discharge Diagnosis/Procedures: Small bowel obstruction, Treacher-Barriga syndrome
Condition: Good
Diet: Low Fiber
Activity: As tolerated
Driving Restrictions: As prior to admission
Bathing Restrictions: None
Instructions: Low-fiber diet
Referrals:
Gavino Bueno MD [Active] - in four to six weeks
UNKNOWN,NO INTERVIEW [Family Provider] - in less than 1 week
Prescriptions:
Continued
lisinopril 5 MG tablet
5 mg PO DAILY
docosahexaenoic acid-epa 1 CAP capsule
1 cap PO DAILY
therapeutic multivitamin Tablet
1 tab PO DAILY
calcium carbonate 500 mg calcium (1,250 mg) Tablet
500 mg PO DAILY
Discharge Orders:
Discharge Patient (As Directed); Ordered 04/02/25
Ordered By: Shelley Boudreaux
Discharge Date and Time
Discharge Date/Time: 04/02/25 15:21
Print Language: CENTRAL AFRICAN
== END 2025-04-02 15:21 | disposition home or self-care (01) | DRG 390 ==
LOC: 1 ACUTE 02:42
PROVIDERS: Internal Medicine; Physician Assistant; Registered Nurse; ADMITTING PHYSICIAN Internal Medicine; ATTENDING PHYSICIAN Internal Medicine; CONSULT PHYSICIAN Surgery; EMERGENCY PHYSICIAN Emergency Medicine
DX: K56.600 Partial intestinal obstruction, unspecified as to cause (principal); K80.20 Calculus of gallbladder without cholecystitis without obstruction; Q75.4 Mandibulofacial dysostosis; I10 Essential (primary) hypertension; D72.829 Elevated white blood cell count, unspecified; Z79.899 Other long term (current) drug therapy
CPT/HCPCS: 74177; 80048; 80053; 81003; 81015; 83690; 83735; 85025; 85027; 86803; 96361; 96374; 96375; 99285; Q9967